=== PATIENT | male | born 1960 | race Caucasian/White ===

== ENCOUNTER 2021-04-28 12:38 | Emergency (ER) | payer OTHER, SELFPAY ==
--- NOTE | 2021-04-28 | ECG_ITS ---
Test Reason : GENERAL MEDICAL Blood Pressure : / mmHG Vent. Rate : 067 BPM Atrial Rate : 067 BPM P-R Int : 118 ms QRS Dur : 084 ms QT Int : 414 ms P-R-T Axes : 041 028 016 degrees QTc Int : 437 ms Normal sinus rhythm Normal ECG No previous ECGs available Referred By: Generic ED Physician Electronically Signed By:KAYLA CAIN MD
--- NOTE | ~2021-04-28 | XR_ITS ---
EXAMINATION: XR CHEST CLINICAL INFORMATION: Chest pressure. COMPARISON: None TECHNIQUE: 2 views of the chest were obtained. FINDINGS: No significant abnormality is noted involving the heart, lungs, mediastinum, bony thorax or soft tissues. XR/XR chest 2V IMPRESSION: Unremarkable examination.
--- NOTE | ~2021-04-28 | CT_ITS ---
EXAMINATION: CT ANGIOGRAM OF THE CHEST WITH AND WITHOUT CONTRAST (CT PULMONARY ANGIOGRAM FOR PE) CT ABDOMEN AND PELVIS WITH IV CONTRAST CLINICAL INFORMATION: Chest pain, positive d-dimer. Abdominal pain, rectal bleeding COMPARISON: No pertinent prior studies are available for comparison. TECHNIQUE: Prior to contrast administration, noncontrast localization images were obtained. Subsequently, multidetector volumetric imaging was performed from the thoracic inlet to the pubic symphysis through the chest, abdomen, and pelvis following the administration of 85 mL Omnipaque 350 intravenous contrast. No contrast reaction reported Sagittal, coronal, and MIP oblique sagittal (through the chest only) reformatted images were obtained on the CT workstation, uploaded to PACS, and reviewed. Total exam dose-length product 551+294 mGy-cm This CT examination was performed using dose optimization techniques as appropriate, variously including the following: *Automated exposure control *Adjustment of mA and/or kV according to patient size (this includes techniques or standardized protocols for targeted exams where dose is matched to indication/reason for exam; i.e. extremities or head) *Use of iterative reconstruction technique FINDINGS: QUALITY OF STUDY/CONTRAST BOLUS: Satisfactory. PULMONARY ARTERIES: No central or segmental pulmonary emboli. THORACIC AORTA: No aneurysm or dissection. LUNG: No focal consolidation, nodules or masses. PLEURA: No pleural effusion or pneumothorax. MEDIASTINUM: Normal heart size. No pericardial effusion. No hilar or mediastinal lymphadenopathy. No evidence of septal bowing or right heart strain. CHEST WALL/AXILLA: No axillary or internal mammary lymphadenopathy. ABDOMEN/PELVIS: LIVER, GALLBLADDER AND BILIARY TREE: Well-circumscribed water density 1.6 cm cyst in segment 5 of the liver; no imaging follow-up recommended. Gallbladder normal. No biliary ductal dilatation. PANCREAS: Normal; no mass or surrounding fluid. SPLEEN: Normal size. No focal lesion. ADRENAL GLANDS: Normal; no mass. KIDNEYS AND URETERS: The kidneys are normal in size, shape, and attenuation. No hydronephrosis, hydroureter, or calculi. GASTROINTESTINAL TRACT: Stomach and small bowel non-dilated. Scattered colonic diverticulosis. There is very subtle fat stranding adjacent the proximal left colon. This segment of colon is collapsed with wall thickening which may be attributable to underdistention. Normal appendix. ABDOMINAL WALL: There is fat in the inguinal canals bilaterally. Tiny fat-containing umbilical hernia. LYMPHOVASCULAR STRUCTURES: No lymphadenopathy. The aorta is unremarkable. BLADDER: No focal mass or wall thickening seen. No bladder calculi. PELVIC VISCERA: Mild prostatomegaly. Seminal vesicles are symmetric. OSSEOUS STRUCTURES: No acute or suspicious osseous abnormality. CT/CT angio chest PE protocol IMPRESSION: No pulmonary embolus seen. No acute pulmonary disease. Subtle fat stranding adjacent the proximal left colon. This could reflect early/mild colitis or diverticulitis. No abscess or perforation. No rectal wall thickening seen. VTE: negative
[2021-04-28 14:02] VITALS: BP 165/112; PULSE 84; RESP 18; TEMP 36.6; O2SAT 99; BMI 25.2
[2021-04-28 14:39] LABS: MANUAL DIFF FLAG NO
[2021-04-28 14:45] LABS: Basophils Percent Auto 0.4 % (0-2); Eosinophils Percent Auto 0.4 % (0-4); Hematocrit 49.7 % (42.0-52.0); Hemoglobin 17.2 g/dl (14.0-18.0); Imm Gran Abs Auto 0.04 X10*3/uL (0.00-0.03); Imm Gran Pct Auto 0.4 % (0.0-0.4); Lymphocytes Absolute Auto 1.9 X10*3/uL (1.2-4.9); Lymphocytes Percent Auto 17.7 % (20-40); Mean Corpuscular HGB Conc 34.6 g/dl (31.0-36.0); Mean Corpuscular Hemoglobin 32.3 pg (27.0-33.0); Mean Corpuscular Volume 93.4 fL (80.0-98.0); Mean Platelet Volume 10.3 fL (9.4-12.4); Monocytes Absolute Auto 0.9 X10*3/uL (0.1-1.2); Monocytes Percent Auto 8.2 % (2-11); Neutrophils Absolute Auto 7.8 x10*3/uL (2.0-8.3); Neutrophils Percent Auto 72.9 % (45-73); Platelet Count 252 X10*3/uL (160-400); Red Blood Count 5.32 X10*6/uL (4.60-5.80); Red Cell Distribution Width 12.1 % (11.0-16.0); White Blood Count 10.7 X10*3/uL (4.8-10.8)
[2021-04-28 15:06] LABS: Alanine Aminotransferase 35 U/L (0-40); Albumin Level 4.5 g/dL (3.5-5.0); Alkaline Phosphatase 93 U/L (39-117); Anion Gap 13 (12-20); Aspartate Amino Transferase 26 U/L (5-37); Bilirubin Direct 0.2 mg/dL (0.0-0.5); Bilirubin Total 0.7 mg/dL (0.0-1.0); Blood Urea Nitrogen 15 mg/dL (9-16); Calcium 9.7 mg/dL (8.4-10.2); Carbon Dioxide 27 mmol/L (22-29); Chloride 105 mmol/L (96-108); Creatinine Clr Calc Pharmacy 81.7; Estimated Glomerular Filt Rate > 60; Glucose Random 104 mg/dL (60-115); Lipase 31 U/L (8-78); Potassium 4.4 mmol/L (3.3-5.1); Sodium 141 mmol/L (135-145)
[2021-04-28 17:48] LABS: Appearance Urine CLEAR; Color Urine YELLOW; Glucose Urine UA NEG (NEG); Leukocyte Esterase Urine NEG (NEG); Nitrite Urine NEG (NEG); PH 5.5 (5.0-8.0); Specific Gravity - Urine 1.025 (1.005-1.025); Urine Blood NEG (NEG); Urine Ketones NEG (NEG); Urine Protein NEG (NEG-TRACE)
[2021-04-28 18:33] VITALS: PULSE 117; RESP 34; TEMP 37.1; O2SAT 99
--- NOTE | 2021-04-28 19:18 | ED.GIBLEED ---
HPI - GI Bleed General Chief complaint: GI Bleed Stated complaint: blood in stool, lower abd pain Time Seen by Provider: 04/28/21 18:29 Source: patient Mode of arrival: ambulatory Limitations: no limitations History of Present Illness HPI Narrative: 60-year-old male previously healthy here with reports of 3 days of abdominal cramping with bright red blood from rectum. Patient tells me that evening he started to have some cramping. Thursday he had about 6 episodes of bright red blood per rectum. Thursday no episodes. Today he had 4 episodes. He denies any nausea, vomiting, fevers, chills. No sick contact or recent travel. Patient is not on any anticoagulation. He denies any NSAID or aspirin use. No alcohol use. Patient tells me he had a colonoscopy about 10 years ago which he believes was normal. Also complaining of some chest pressure which he noticed with waking, feeling anxious. No associated diaphoresis, shortness of breath, nausea or vomiting. Related Data Previous Rx's Medication Instructions Recorded dicyclomine 10 mg capsule 10 mg PO TID PRN #20 cap 04/28/21 levofloxacin 750 mg tablet 750 mg PO DAILY 7 Days #7 tab 04/28/21 metronidazole 500 mg tablet 500 mg PO BID 7 Days #14 tab 04/28/21 Allergies Allergy/AdvReac Type Severity Reaction Status Date / Time No Known Allergies Allergy Verified 04/28/21 14:01 Review of Systems Review of Systems: Yes all other systems are reviewed and are negative Constitutional: Constitutional: Reports no additional constitutional complaints, Denies body ache(s), Denies chills, Denies fever(s), Denies headache(s) and Denies weakness Eyes: Eyes: Reports no additional eye complaints and Denies change in vision ENT: Reports system reviewed and no additional complaints, except as documented, Denies dizziness, Denies headache(s), Denies nasal congestion, Denies nasal discharge and Denies neck pain Cardiovascular: Cardiovascular: Reports no additional cardiovascular complaints, Reports chest pain, Denies leg edema and Denies dyspnea Respiratory: Respiratory: Reports no additional respiratory complaints, Denies cough and Denies dyspnea Gastrointestinal: Gastrointestinal: Reports no additional gastrointestinal complaints, Reports abdominal pain, Reports hematochezia, Denies diarrhea, Denies nausea and Denies vomiting Genitourinary: Genitourinary: Denies urinary incontinence Musculoskeletal: Musculoskeletal: Reports no additional musculoskeletal complaints, Denies back pain, Denies arthralgias, Denies joint swelling, Denies neck pain, Denies numbness and Denies tingling Integumentary/Breasts: Skin/Breast: Reports system reviewed and no additional complaints, except as docu and Denies rash Neurologic: Denies Abnormal speech present, Denies dizziness, Denies headache(s), Denies numbness, Denies tingling and Denies weakness PMF Past Medical History Attestation statement: The following information was validated with the patient. Source: old records reviewed and nursing notes reviewed Medical History No known health problems Social History Social History Advance Directives: No Advance Directives Information Provided: No Physical Exam Vital Signs: Vital Signs: Last Vital Signs Temp 98.2 F 04/28/21 21:06 Pulse 89 04/28/21 21:06 Resp 15 04/28/21 21:06 BP 168/102 H 04/28/21 21:06 Pulse Ox 97 04/28/21 21:06 BMI result Body Mass Index 25.2 Const: General: cooperative, healthy appearing, comfortable and no acute distress Orientation/consciousness: patient oriented x3 Limitations: no limitations HENMT: Head: Yes normal to inspection Ears: hearing grossly normal bilaterally General nose exam: Normal external nose present Face and sinus: Yes normal facial exam Mouth: Normal oral and palatal mucosa present Throat: Yes posterior oropharynx normal Eyes: General: appearance normal, both eyes and all related structures Pupils: Equal, round and reactive pupils present Neck: Neck: Yes normal visual inspection Chest: Chest palpation & inspection: normal inspection of the chest Resp: Effort & Inspection: normal respiratory effort Auscultation: clear to auscultation bilaterally Cardio: Rate: regular rate Rhythm: regular rhythm Peripheral pulses: Peripheral pulses 2+ throughout 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 On rectal exam BRB noted. No tenderness. no hemorrhoid. Inspection: Yes normal to inspection Palpation (GI): Soft to palpation and Tenderness to palpation present (GI) (Left lower and right lower. No rebound or guarding) Auscultation: normal bowel sounds Back/Spine/Pelvis: Thoracic/Lumbar Spine: thoracic and lumbar spine normal to inspection Skin: General skin exam: no rashes or lesions noted Neuro: General: patient oriented x3, no focal motor deficits and normal sensation to monofilament Cranial nerves: Yes Equal, round and reactive pupils present Cognition (Neuro): normal cognition Speech: No Abnormal speech present Gait exam (Neuro): Normal gait present Motor exam (neuro): 5/5 motor strength present throughout Extrem: General: Yes normal to inspection, Yes no pedal edema and Yes no calf tenderness Course Course Course Narrative: 60-year-old male previously healthy here with multiple complaints. Patient tells me the last 3 days have lower abdominal cramping with bright red blood from rectum with clots. No nausea, vomiting, fevers, chills. No anticoagulation use, daily aspirin or NSAID use. No alcohol use. On exam the patient has tenderness to bilateral lower quadrants with no rebound or guarding. His rectal exam shows several fissures the patient also has bright red blood noted on rectal exam with no palpable hemorrhoid. Will check occult stool, labs, CT abdomen and pelvis with IV contrast. Patient also complaining of some central chest pressure noted this morning which is worsened with deep breathing and seems pleuritic in nature with no cough, tachypnea, leg swelling or pain. Will check EKG, chest x-ray, D-dimer, troponin. [id number] is positive. Will need CTA. [id number] negative for PE. Less likely ACS with normal troponin and EKG was symptoms greater than 8 hours. Mild hypertension but asymptomatic. Patient can follow up outpatient with his primary care doctor. CT abdomen shows subtle fat stranding which could represent early colitis or diverticulitis. No fever, leukocytosis. Pain is well controlled. Will treat with course of antibiotics. Patient has had no additional bleeding and has been in our ER for 8 hours. His repeat CBC is changed. Case discussed with dr aiken. Plan to iniatate antibiotics oral and refer outpatient to GI for follow-up. Reviewed worrisome signs and symptoms with the patient when to return to the emergency department. Comfortable discharge home. MDM - GI Bleed MDM Narrative Medical decision making narrative: ACS, PE, chest wall strain, anxiety Diverticular bleed, diverticulitis, hemorrhoids Medical Records Attestation: I reviewed the patient's medical records. Lab Data Attestation: I reviewed the patient's lab results. Result diagrams: 04/28/21 21:11 04/28/21 14:30 Labs: Lab Results 04/28/21 04/28/21 04/28/21 Range/Units 14:30 14:30 17:43 WBC 10.7 (4.8-10.8) X10*3/uL RBC 5.32 (4.60-5.80) X10*6/uL Hgb 17.2 (14.0-18.0) g/dl Hct 49.7 (42.0-52.0) % MCV 93.4 (80.0-98.0) fL MCH 32.3 (27.0-33.0) pg MCHC 34.6 (31.0-36.0) g/dl RDW 12.1 (11.0-16.0) % Plt Count 252 (160-400) X10*3/uL MPV 10.3 (9.4-12.4) fL Immature Gran % (Auto) 0.4 (0.0-0.4) % Neut % (Auto) 72.9 (45-73) % Lymph % (Auto) 17.7 L (20-40) % [place] % (Auto) 8.2 (2-11) % Eos % (Auto) 0.4 (0-4) % Baso % (Auto) 0.4 (0-2) % Lymph # (Auto) 1.9 (1.2-4.9) X10*3/uL [place] # (Auto) 0.9 (0.1-1.2) X10*3/uL Eos # (Auto) 0.0 (0.0-0.4) X10*3/uL Baso # (Auto) 0.0 (0.0-0.2) X10*3/uL Abs Immat Gran (auto) 0.04 H (0.00-0.03) X10*3/uL Absolute Neuts (auto) 7.8 (2.0-8.3) x10*3/uL Absolute Nucleated RBC 0.000 (0.0-0.012) X10*3/uL Nucleated RBC % (auto) 0.0 (0.0-0.2) /100WBC PT (9.9-13.0) SEC INR (0.9-1.1) D-Dimer High Sensitivty NG/ML Sodium 141 (135-145) mmol/L Potassium 4.4 (3.3-5.1) mmol/L Chloride 105 (96-108) mmol/L Carbon Dioxide 27 (22-29) mmol/L Anion Gap 13 (12-20) BUN 15 (9-16) mg/dL Creatinine 0.93 (0.5-1.4) mg/dL Estim Creat Clear Calc 81.7 Estimated GFR > 60 Random Glucose 104 (60-115) mg/dL Calcium 9.7 (8.4-10.2) mg/dL Total Bilirubin 0.7 (0.0-1.0) mg/dL Direct Bilirubin 0.2 (0.0-0.5) mg/dL AST 26 (5-37) U/L ALT 35 (0-40) U/L Alkaline Phosphatase 93 (39-117) U/L Troponin I High Sens (<3.5-35.0) ng/L Total Protein 8.0 (6.5-8.0) g/dL Albumin 4.5 (3.5-5.0) g/dL Lipase 31 (8-78) U/L Urine Color YELLOW Urine Appearance CLEAR Urine pH 5.5 (5.0-8.0) Ur Specific [place] 1.025 (1.005-1.025) Urine Protein NEG (NEG-TRACE) MG/DL Urine Glucose (UA) NEG (NEG) MG/DL Urine Ketones NEG (NEG) MG/DL Urine Blood NEG (NEG) Urine Nitrite NEG (NEG) Ur Leukocyte Esterase NEG (NEG) Stool Occult Blood (NEGATIVE) COVID-19 ([facility]) (Negative) COVID-19 Clin Com 04/28/21 04/28/21 04/28/21 Range/Units 19:09 19:11 19:11 WBC (4.8-10.8) X10*3/uL RBC (4.60-5.80) X10*6/uL Hgb (14.0-18.0) g/dl Hct (42.0-52.0) % MCV (80.0-98.0) fL MCH (27.0-33.0) pg MCHC (31.0-36.0) g/dl RDW (11.0-16.0) % Plt Count (160-400) X10*3/uL MPV (9.4-12.4) fL Immature Gran % (Auto) (0.0-0.4) % Neut % (Auto) (45-73) % Lymph % (Auto) (20-40) % [place] % (Auto) (2-11) % Eos % (Auto) (0-4) % Baso % (Auto) (0-2) % Lymph # (Auto) (1.2-4.9) X10*3/uL [place] # (Auto) (0.1-1.2) X10*3/uL Eos # (Auto) (0.0-0.4) X10*3/uL Baso # (Auto) (0.0-0.2) X10*3/uL Abs Immat Gran (auto) (0.00-0.03) X10*3/uL Absolute Neuts (auto) (2.0-8.3) x10*3/uL Absolute Nucleated RBC (0.0-0.012) X10*3/uL Nucleated RBC % (auto) (0.0-0.2) /100WBC PT 12.0 (9.9-13.0) SEC INR 1.1 (0.9-1.1) D-Dimer High Sensitivty 277 NG/ML Sodium (135-145) mmol/L Potassium (3.3-5.1) mmol/L Chloride (96-108) mmol/L Carbon Dioxide (22-29) mmol/L Anion Gap (12-20) BUN (9-16) mg/dL Creatinine (0.5-1.4) mg/dL Estim Creat Clear Calc Estimated GFR Random Glucose (60-115) mg/dL Calcium (8.4-10.2) mg/dL Total Bilirubin (0.0-1.0) mg/dL Direct Bilirubin (0.0-0.5) mg/dL AST (5-37) U/L ALT (0-40) U/L Alkaline Phosphatase (39-117) U/L Troponin I High Sens < 3.5 (<3.5-35.0) ng/L Total Protein (6.5-8.0) g/dL Albumin (3.5-5.0) g/dL Lipase (8-78) U/L Urine Color Urine Appearance Urine pH (5.0-8.0) Ur Specific [place] (1.005-1.025) Urine Protein (NEG-TRACE) MG/DL Urine Glucose (UA) (NEG) MG/DL Urine Ketones (NEG) MG/DL Urine Blood (NEG) Urine Nitrite (NEG) Ur Leukocyte Esterase (NEG) Stool Occult Blood POSITIVE (NEGATIVE) COVID-19 ([facility]) (Negative) COVID-19 Clin Com 04/28/21 04/28/21 Range/Units 19:11 21:11 WBC 10.1 (4.8-10.8) X10*3/uL RBC 4.94 (4.60-5.80) X10*6/uL Hgb 16.3 (14.0-18.0) g/dl Hct 45.7 (42.0-52.0) % MCV 92.5 (80.0-98.0) fL MCH 33.0 (27.0-33.0) pg MCHC 35.7 (31.0-36.0) g/dl RDW 12.0 (11.0-16.0) % Plt Count 228 (160-400) X10*3/uL MPV 10.3 (9.4-12.4) fL Immature Gran % (Auto) 0.5 H (0.0-0.4) % Neut % (Auto) 66.4 (45-73) % Lymph % (Auto) 21.9 (20-40) % [place] % (Auto) 10.2 (2-11) % Eos % (Auto) 0.6 (0-4) % Baso % (Auto) 0.4 (0-2) % Lymph # (Auto) 2.2 (1.2-4.9) X10*3/uL [place] # (Auto) 1.0 (0.1-1.2) X10*3/uL Eos # (Auto) 0.1 (0.0-0.4) X10*3/uL Baso # (Auto) 0.0 (0.0-0.2) X10*3/uL Abs Immat Gran (auto) 0.05 H (0.00-0.03) X10*3/uL Absolute Neuts (auto) 6.7 (2.0-8.3) x10*3/uL Absolute Nucleated RBC 0.000 (0.0-0.012) X10*3/uL Nucleated RBC % (auto) 0.0 (0.0-0.2) /100WBC PT (9.9-13.0) SEC INR (0.9-1.1) D-Dimer High Sensitivty NG/ML Sodium (135-145) mmol/L Potassium (3.3-5.1) mmol/L Chloride (96-108) mmol/L Carbon Dioxide (22-29) mmol/L Anion Gap (12-20) BUN (9-16) mg/dL Creatinine (0.5-1.4) mg/dL Estim Creat Clear Calc Estimated GFR Random Glucose (60-115) mg/dL Calcium (8.4-10.2) mg/dL Total Bilirubin (0.0-1.0) mg/dL Direct Bilirubin (0.0-0.5) mg/dL AST (5-37) U/L ALT (0-40) U/L Alkaline Phosphatase (39-117) U/L Troponin I High Sens (<3.5-35.0) ng/L Total Protein (6.5-8.0) g/dL Albumin (3.5-5.0) g/dL Lipase (8-78) U/L Urine Color Urine Appearance Urine pH (5.0-8.0) Ur Specific [place] (1.005-1.025) Urine Protein (NEG-TRACE) MG/DL Urine Glucose (UA) (NEG) MG/DL Urine Ketones (NEG) MG/DL Urine Blood (NEG) Urine Nitrite (NEG) Ur Leukocyte Esterase (NEG) Stool Occult Blood (NEGATIVE) COVID-19 ([facility]) Negative (Negative) COVID-19 Clin Com See Note Imaging Data Chest x-ray: Attestation: I personally reviewed and interpreted this imaging study as follows: Radiologist's impression: [address] [address] XRay Report Signed Patient: Hua Huerta MR#: [id number] : 1960 Acct:[id number] Age/Sex: 60 / M ADM Date: 04/28/21 Loc: HO.ED Attending Dr: Ordering Physician: Sun Romero NP Date of Service: 04/28/21 Procedure(s): XR chest 2V Accession Number(s): [id number] cc: Sun Romero NP~ EXAMINATION: XR CHEST CLINICAL INFORMATION: Chest pressure. COMPARISON: None TECHNIQUE: 2 views of the chest were obtained. FINDINGS: No significant abnormality is noted involving the heart, lungs, mediastinum, bony thorax or soft tissues. XR/XR chest 2V IMPRESSION: Unremarkable examination. CT scan - abdomen: Attestation: I personally reviewed and interpreted this imaging study as follows: Radiologist's impression: ABDOMEN/PELVIS: LIVER, GALLBLADDER AND BILIARY TREE: Well-circumscribed water density 1.6 cm cyst in segment 5 of the liver; no imaging follow-up recommended. Gallbladder normal. No biliary ductal dilatation.? PANCREAS: Normal; no mass or surrounding fluid.? SPLEEN: Normal size.? No focal lesion.? ADRENAL GLANDS: Normal; no mass.? KIDNEYS AND URETERS: The kidneys are normal in size, shape, and attenuation. No hydronephrosis, hydroureter, or calculi. ? GASTROINTESTINAL TRACT: Stomach and small bowel non-dilated. Scattered colonic diverticulosis. There is very subtle fat stranding adjacent the proximal left colon. This segment of colon is collapsed with wall thickening which may be attributable to underdistention.? Normal appendix. ABDOMINAL WALL: There is fat in the inguinal canals bilaterally. Tiny fat-containing umbilical hernia.? LYMPHOVASCULAR STRUCTURES: No lymphadenopathy. The aorta is unremarkable.? BLADDER: No focal mass or wall thickening seen.? No bladder calculi.? PELVIC VISCERA: Mild prostatomegaly. Seminal vesicles are symmetric. OSSEOUS STRUCTURES: No acute or suspicious osseous abnormality.? CT scan - chest: Attestation: I personally reviewed and interpreted this imaging study as follows: Radiologist's impression: FINDINGS: QUALITY OF STUDY/CONTRAST BOLUS: Satisfactory. PULMONARY ARTERIES: No central or segmental pulmonary emboli.? THORACIC AORTA: No aneurysm or dissection. LUNG: No focal consolidation, nodules or masses. PLEURA: No pleural effusion or pneumothorax. MEDIASTINUM: Normal heart size.? No pericardial effusion.? No hilar or mediastinal lymphadenopathy.? No evidence of septal bowing or right heart strain. CHEST WALL/AXILLA: No axillary or internal mammary lymphadenopathy. ECG Data Attestation: I personally reviewed and interpreted this ECG as follows: ECG interpretation date: 04/28/21 ECG interpretation time: 14:21 Interpretation: Normal sinus rhythm with a rate of 67, normal IL, normal QRS, normal QT Discharge Plan Discharge Clinical Impression: Colitis Patient Disposition: Home, Self-Care Instructions: Colitis (ED) Additional Instructions: COVID test negative Start antibiotics Increase fluids, rest Follow-up with Gastroenterology outpatient Return for feeling dizzy or weak, 2 or more vomiting episodes, severe abdominal pain or fever Prescriptions: New levofloxacin 750 mg tablet 750 mg PO DAILY 7 Days Qty: 7 RF: 0 metronidazole 500 mg tablet 500 mg PO BID 7 Days Qty: 14 RF: 0 dicyclomine 10 mg capsule 10 mg PO TID PRN (Reason: abdominal pain) Qty: 20 RF: 0 Referrals: Henry Hyman [Physician] - 2 days Stand Alone Forms: Work/School Release Interventions: ED Discharge Assessment Last Done: 04/28/21 21:43
[2021-04-28 19:21] LABS: OBS Int Ctl Valid YES; OBS1 POSITIVE (NEGATIVE)
[2021-04-28 19:28] LABS: INTERNATIONAL NORM RATIO 1.1 (0.9-1.1)
[2021-04-28 19:30] LABS: D Dimer High Sensitivity 277 NG/ML
[2021-04-28 19:37] LABS: COVID-19 Test Negative (Negative); IDNOW Serial# 9DD0AD1C
[2021-04-28 19:46] LABS: Troponin-I High Sensitivity < 3.5 ng/L (<3.5-35.0)
[2021-04-28] MEDS: iohexoL 350 MG/ML 100 ML INFUS..BTL IV (20:17)
[2021-04-28 21:06] VITALS: BP 168/102; PULSE 89; RESP 15; TEMP 36.8; O2SAT 97
[2021-04-28 21:16] LABS: MANUAL DIFF FLAG NO
[2021-04-28 21:17] LABS: Basophils Percent Auto 0.4 % (0-2); Eosinophils Absolute Auto 0.1 X10*3/uL (0.0-0.4); Eosinophils Percent Auto 0.6 % (0-4); Hematocrit 45.7 % (42.0-52.0); Hemoglobin 16.3 g/dl (14.0-18.0); Imm Gran Abs Auto 0.05 X10*3/uL (0.00-0.03); Imm Gran Pct Auto 0.5 % (0.0-0.4); Lymphocytes Absolute Auto 2.2 X10*3/uL (1.2-4.9); Lymphocytes Percent Auto 21.9 % (20-40); Mean Corpuscular HGB Conc 35.7 g/dl (31.0-36.0); Mean Corpuscular Volume 92.5 fL (80.0-98.0); Mean Platelet Volume 10.3 fL (9.4-12.4); Monocytes Percent Auto 10.2 % (2-11); Neutrophils Absolute Auto 6.7 x10*3/uL (2.0-8.3); Neutrophils Percent Auto 66.4 % (45-73); Platelet Count 228 X10*3/uL (160-400); Red Blood Count 4.94 X10*6/uL (4.60-5.80); White Blood Count 10.1 X10*3/uL (4.8-10.8)
== END 2021-04-28 22:01 | disposition home or self-care (01) ==
PROVIDERS: Nurse Practitioner Family; Emergency Provider Internal Medicine; PCP Internal Medicine
DX: K52.9 Noninfective gastroenteritis and colitis, unspecified (principal); R79.1 Abnormal coagulation profile; Z20.822 Contact with and (suspected) exposure to COVID-19
CPT/HCPCS: 36415; 71046; 71275; 74177; 80048; 80076; 81003; 82272; 83690; 84484; 85025; 85379; 85610; 87635; 93005; 99283; 99284; Q9967

== ENCOUNTER 2024-01-12 09:05 | Outpatient (AMB) | payer OTHER, SELFPAY ==
--- NOTE | 2024-01-12 09:08 | AM.OFFWIN_ITS ---
Intake Vital Signs 01/12/24 09:10 Height 5 ft 8 in Weight 166 lb BMI 25.2 BP 140/90 H Blood Pressure Location Rt brachial Position Sitting Pulse 111 H Pulse Source Pulse Oximeter Pulse Oximetry (%) 97 Oxygen Delivery Method Room Air Intake Visit Reasons: EP Headache, Elevated BP 148/131 HR 115-130 Intake Note: Patient here for headache, elevated BP and HR. Patient Tobacco Use Status: Never used Tobacco Allergies No Known Allergies Allergy (Verified 01/12/24 09:11) Do you need a note to return to daycare/school/sports/work: No HPI HPI Comments History of Present Illness Details This is a 63-year-old male with history for evaluation of fatigue, elevated blood pressure and elevated heart rate that he has noted since y . 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 Patient states that he was restless and last night went home and noted that his heart rate was elevated as recorded by his Apple watch. Patient states at 5:00 a.m. today he took his blood pressure which was 148/132 when his heart rate was elevated at 111. Patient denies having any chest pain, calf pain, shortness of breath, neck pain or visual changes. Patient reports having a dull, mild, frontal headache above his eyebrows for which he has taken Tylenol. Patient states his blood pressure medication was discontinued approximately 5 months ago because his blood pressure was ?normal?. Patient denies any hypotension, syncope, lightheadedness or other side effects of his blood pressure medication. [facility] Medical History No known health problems Social History Patient Tobacco Use Status: Never used Tobacco Review of Systems Const All systems reviewed & are unremarkable except as noted in HPI and below Denies body aches, Denies chills, Reports fatigue, Denies fever(s), Denies lethargy, Reports malaise and Denies weakness Eyes Reports as per HPI, Reports no additional complaints and Denies change in vision ENT Reports no additional complaints, Denies vertigo, Denies dizziness and Denies neck pain Card Reports as per HPI, Reports no additional complaints and Denies syncope Resp Reports as per HPI and Reports no additional complaints Musc Reports no additional complaints, Denies abnormal gait, Denies muscle cramps, Denies muscle weakness and Denies neck pain Neuro Reports no additional complaints, Denies abnormal gait, Denies confusion, Denies vertigo, Denies dizziness, Denies syncope and Denies weakness Psych Reports no additional complaints and Denies confusion Endo Reports fatigue Physical Exam Vital Signs: Last Vital Signs Pulse 111 H 01/12/24 09:10 BP 140/90 H 01/12/24 09:10 Pulse Ox 97 01/12/24 09:10 Oxygen Delivery Method Room Air 01/12/24 09:10 BMI result Body Mass Index 25.2 Recheck of blood pressure 158/116, pulse 96 bpm. Const General: cooperative, comfortable, no acute distress, well developed, alert, awake and Physically active; No acute distress, confusion, ill appearing or lethargic Nutritional Appearance: average body habitus Orientation/consciousness: patient oriented x3, No confusion and No lethargic Limitations: no limitations HEENT Head: Yes normal to inspection and No Temporal artery tenderness present Ears: hearing grossly normal bilaterally and external ears normal General nose exam: Normal external nose present Face and sinus: Yes normal facial exam Eyes General: appearance normal, both eyes and all related structures Visual Cross: normal visual cross by confrontation Alignment and Position: alignment normal and position normal Periorbital: periorbital findings normal Eyelids: Yes eyelids normal Conjunctivae: conjunctivae normal Sclerae: sclerae normal Corneas: corneas normal Pupils: Equal, round and reactive pupils present EOM: EOMs intact bilaterally Direct Ophthalmoscopy: no photophobia Resp Effort & Inspection: normal respiratory effort, able to speak in complete sentences, abnormal respiratory pattern, no audible wheezes, no cough, respiratory effort not decreased and no respiratory distress Auscultation: clear to auscultation bilaterally Cardio Rate: regular rate Rhythm: regular rhythm Back/Spine/Pelvis Cervical Spine: cervical ROM normal, No cervical muscular tenderness and No Cervical spine tenderness Skin General skin exam: no rashes or lesions noted Neuro General: patient oriented x3 and No confusion Cranial nerves: Yes Equal, round and reactive pupils present Extrem General: Yes normal to inspection and Yes normal gait Psych Appearance: grossly normal Mental Status: mental status grossly normal Insight: Good insight present (Psych) Judgement: Good judgement present (Psych) Assessment & Plan Assessment & Plan (1) Hypertension: Comment: Patient is neurologically intact and in no acute distress. Patient has a documented history of hypertension and will likely require a re-initiation of his medication. Patient states he has an active primary care physician through [facility]. Code(s): I10 - Essential (primary) hypertension Qualifiers: Hypertension type: unspecified Qualified Code(s): I10 - Essential (primary) hypertension Plan: Patient will call his PCP today to schedule outpatient follow up. Patient will record one blood pressure daily and include the date, time and blood pressure reading to bring to his primary care physician. No new antihypertensive medications prescribed at this time. (2) Headache: Code(s): R51.9 - Headache, unspecified Qualifiers: Headache chronicity pattern: acute headache Headache type: unspecified Intractability: not intractable Qualified Code(s): R51.9 - Headache, unspecified Plan: Ibuprofen or Tylenol as needed for headache and patient is encouraged to stay well hydrated with water upon returning home. Medications: Discontinued dicyclomine Discontinued Reason: Patient Completed Course 10 mg PO TID PRN 20 caps 0RF abdominal pain levofloxacin Discontinued Reason: Patient Completed Course 750 mg PO DAILY 7 days 7 tabs 0RF metronidazole Discontinued Reason: Patient Completed Course 500 mg PO BID 7 days 14 tabs 0RF Coding Level of Care Code Est Pt Level 3 (40246) Diagnoses Hypertension, unspecified type I10 Hypertension type: unspecified Acute nonintractable headache, unspecified headache type R51.9 Headache chronicity pattern: acute headache Headache type: unspecified Intractability: not intractable Time Spent (min) 20
[2024-01-12 09:10] VITALS: BP 140/90; PULSE 111; O2SAT 97; BMI 25.2
== END 2024-01-12 09:57 | disposition home or self-care (01) ==
PROVIDERS: PCP Internal Medicine; Visit Provider Physician Assistant
DX: I10 Essential (primary) hypertension (principal); R51.9 Headache, unspecified

== ENCOUNTER → 2024-01-12 09:05 | Outpatient (BNVA) | payer OTHER, SELFPAY | PROVIDERS: PCP Internal Medicine | DX: I10 Essential (primary) hypertension (principal); R51.9 Headache, unspecified ==